=== PATIENT | female | born 1985 | race Caucasian/White ===

== ENCOUNTER 2018-04-05 11:51 | Emergency (ER) | payer MEDICAID ==
[~2018-04-05] VITALS: Ht 160 cm; Wt 79.4 kg
[2018-04-05 11:51] VITALS: BP_SYST 134
[2018-04-05 12:45] LABS: CALCIUM 9.4 mg/dL (8.4-11.0); CREATININE 0.48 mg/dL (0.55-1.30); POTASSIUM 3.4 mmol/L (3.5-5.1)
[2018-04-05 13:11] LABS: ALBUMIN 3.6 g/dL (3.4-4.8); TOTAL BILIRUBIN 0.2 mg/dL (0.0-1.0)
[2018-04-05 13:24] LABS: BASOPHILS % (AUTO) 0.6 % (0.0-2.0); EOSINOPHILS % (AUTO) 0.5 % (0.0-4.0); HEMATOCRIT 38.2 % (36-48); HEMOGLOBIN 11.9 g/dL (12.0-16.0); LYMPHOCYTES # (AUTO) 1.8 K/uL (1.0-5.5); LYMPHOCYTES % (AUTO) 22.9 % (20.5-51.5); MEAN CORPUSCULAR HEMOGLOBIN 25 pg (27-31); MEAN CORPUSCULAR HGB CONC 31 % (32-36); MEAN CORPUSCULAR VOLUME 81 fL (79.0-98.0); MONOCYTES # (AUTO) 0.4 K/uL (0.0-1.0); MONOCYTES % (AUTO) 4.7 % (1.7-9.3); NEUTROPHILS # (AUTO) 5.5 K/uL (1.8-7.7); NEUTROPHILS % (AUTO) 71.3 % (40.0-70.0); PLATELET COUNT (AUTO) 245 K/uL (130-430); RED BLOOD CELL COUNT(AUTO) 4.73 MIL/uL (4.2-6.2); RED CELL DISTRIBUTION WIDTH 15.9 % (9.0-15.0); WHITE BLOOD COUNT (AUTO) 7.7 K/uL (4.8-10.8)
[2018-04-05 13:39] LABS: BILIRUBIN,URINE NEGATIVE (NEGATIVE); BLOOD, URINE NEGATIVE (NEGATIVE); CLARITY/URINE CLEAR (CLEAR); COLOR,URINE YELLOW (YELLOW); GLUCOSE,URINE NEGATIVE (NEGATIVE); KETONES,URINE NEGATIVE (NEGATIVE); LEUKOCYTE ESTERASE ,URINE TRACE (NEGATIVE); NITRITE, URINE NEGATIVE (NEGATIVE); PROTEIN URINE NEGATIVE (NEGATIVE); UROBILINOGEN,URINE 0.2 (0.2-1.0)
[2018-04-05 13:50] LABS: BACTERIA,URINE FEW /HPF (None Seen); MUCUS,URINE None Seen /LPF (None Seen); RBC,URINE 0-3 /HPF (0-3); WBC,URINE 0-3 /HPF (0-3)
[2018-04-05] MEDS ORDERED: cefTRIAXone 1 GM VIAL IM ONE (14:30)
[2018-04-05] MEDS ORDERED: ACETAMINOPHEN 500 MG TABLET PO ONE (14:30)
[2018-04-05] MEDS ORDERED: LIDOCAINE 1%, 20 ML MDV 20 ML ONE (14:44)
[2018-04-05 14:51] VITALS: BP_SYST 134
== END 2018-04-05 14:51 | disposition home or self-care (01) ==
LOC: SED 11:51
DX: Z30.432 Encounter for removal of intrauterine contraceptive device (principal); Z3A.01 Less than 8 weeks gestation of pregnancy
CPT/HCPCS: 36415; 76801; 76817; 80053; 81000; 81025; 84702; 85025; 86900; 86901; 87086; 87186; 96372; 99284; J0696; J2001

== ENCOUNTER 2018-11-08 10:30 | Emergency (ER) | payer SELFPAY ==
[~2018-11-08] VITALS: Ht 162.6 cm; Wt 90.7 kg
[2018-11-08 10:39] VITALS: BP_SYST 116
--- NOTE | 2018-11-08 10:43 | NUR ---
Patient to ER bed 8 to gown for evaluation. Side rails up. Report given to Tyler STORM.
--- NOTE | 2018-11-08 10:44 | NUR ---
Patient is awake, alert, and orienetd x4. Patient is complaining of shortness of breath since last night. Patient reports chest tightness 5/10 when taking a deep breath.
--- NOTE | 2018-11-08 10:50 | NUR ---
ER Dr. Campos at bedside examining patient.
[2018-11-08 11:23] VITALS: BP_SYST 123
--- NOTE | 2018-11-08 11:23 | NUR ---
Patient given written and verbal discharge instructions and verbalizes understanding. ER MD Campos discussed with patient the results and treatment provided. Patient in stable condition. ID arm band removed. Rx of Azithromycin, Albuterol given. Patient educated on pain management and to follow up with PMD. Pain Scale 0. Opportunity for questions provided and answered. Medication side effect fact sheet provided.
== END 2018-11-08 11:23 | disposition home or self-care (01) ==
LOC: SED 10:30
DX: J20.9 Acute bronchitis, unspecified (principal); H66.92 Otitis media, unspecified, left ear
CPT/HCPCS: 71045; 99283

== ENCOUNTER 2018-11-26 20:34 | Emergency (ER) | payer SELFPAY ==
--- NOTE | 2018-11-26 21:13 | NUR ---
Called patient's name in waiting room. No response.
--- NOTE | 2018-11-26 21:20 | NUR ---
Called patient in waiting room and outside, no response.
--- NOTE | 2018-11-26 21:25 | NUR ---
CALLED PATIENT, NO RESPONSE.
--- NOTE | 2018-11-26 21:25 | NUR ---
LEFT WITHOUT BEING SEEN
== END 2018-11-26 21:25 | disposition left against medical advice (07) ==
LOC: SED 20:34
DX: H53.8 Other visual disturbances (principal); R51 Headache; Z53.21 Procedure and treatment not carried out due to patient leaving prior to being seen by health care provider

== ENCOUNTER 2019-02-12 22:21 | Emergency (ER) | payer SELFPAY ==
[~2019-02-12] VITALS: Ht 162.6 cm; Wt 79.4 kg
[2019-02-12 22:22] VITALS: BP_SYST 154
--- NOTE | 2019-02-12 22:28 | NUR ---
Patient to ER bed 04 to gown for evaluation. Side rails up.
--- NOTE | 2019-02-12 22:32 | NUR ---
Pt brought in by . Pt awake, alert, oriented x4. pt states she has flu-like symptoms , sore throat, head congestion for approx 1 week. Pt states that 1 month ago she was diagnosed with tonsilitis by her dentist and was given keflex by her dentist. She states she completed 5 days of a 10 day antibiotic routine. Pt states her symptoms returned recently, and she wanted to come to the ED. Pt denies chest pain, nausea, vomiting, diarrhea, shortness of breath. Pt denies any other medical complaint at this time. Pt vss, sitting in bed comfortablyt, will continue to monitor.
--- NOTE | 2019-02-12 22:36 | NUR ---
ER at bedside examining patient.
[2019-02-12] MEDS ORDERED: KETOROLAC TROMETHAMINE 30 MG VIAL IM ONE (22:45)
[2019-02-12] MEDS ORDERED: DEXAMETHASONE SOD PHOSPHATE 10 MG/ML VIAL IVP ONE (22:45)
[2019-02-12 23:19] LABS: STREPTOCOCCUS A SCREEN (RAPID) NEGATIVE (NEGATIVE)
[2019-02-12 23:29] LABS: INFLUENZA A&B ANTIGEN SCREEN NEGATIVE FOR A & B (NEGATIVE)
[2019-02-12 23:45] VITALS: BP_SYST 154
--- NOTE | 2019-02-12 23:45 | NUR ---
Patient given written and verbal discharge instructions and verbalizes understanding. ER MD discussed with patient the results and treatment provided. Patient in stable condition. ID arm band removed. Rx of N[place]ros[place]yetta, [place] 5/325, sudafed given. Patient educated on pain management and to follow up with PMD. Pain Scale 1/10. Opportunity for questions provided and answered. Medication side effect fact sheet provided.
== END 2019-02-12 23:45 | disposition home or self-care (01) ==
LOC: SED 22:21
DX: J02.9 Acute pharyngitis, unspecified (principal)
CPT/HCPCS: 36415; 86403; 87081; 96372; 99283; J1100; J1885; 86710

== ENCOUNTER 2019-12-14 19:07 | Emergency (ER) | payer MEDICAID ==
[~2019-12-14] VITALS: Ht 157.5 cm; Wt 81.6 kg
[2019-12-14 19:36] VITALS: BP_SYST 129
[2019-12-14 21:42] LABS: BASOPHILS % (AUTO) 0.5 % (0.0-2.0); EOSINOPHILS # (AUTO) 0.4 K/uL (0.0-0.4); EOSINOPHILS % (AUTO) 6.1 % (0.0-4.0); HEMATOCRIT 34.9 % (36-48); LYMPHOCYTES # (AUTO) 2.2 K/uL (1.0-5.5); LYMPHOCYTES % (AUTO) 31.3 % (20.5-51.5); MEAN CORPUSCULAR HEMOGLOBIN 24 pg (27-31); MEAN CORPUSCULAR HGB CONC 32 % (32-36); MEAN CORPUSCULAR VOLUME 77 fL (79.0-98.0); MONOCYTES # (AUTO) 0.6 K/uL (0.0-1.0); NEUTROPHILS # (AUTO) 3.7 K/uL (1.8-7.7); NEUTROPHILS % (AUTO) 54.1 % (40.0-70.0); PLATELET COUNT (AUTO) 232 K/uL (130-430); RED BLOOD CELL COUNT(AUTO) 4.56 MIL/uL (4.2-6.2); RED CELL DISTRIBUTION WIDTH 21.2 % (9.0-15.0); WHITE BLOOD COUNT (AUTO) 6.9 K/uL (4.8-10.8)
[2019-12-14 21:49] LABS: CALCIUM 8.9 mg/dL (8.4-11.0); CREATININE 0.52 mg/dL (0.55-1.30); POTASSIUM 3.8 mmol/L (3.5-5.1)
[2019-12-14 21:54] LABS: ALBUMIN 3.6 g/dL (3.4-4.8); TOTAL BILIRUBIN 0.1 mg/dL (0.0-1.0)
[2019-12-14] MEDS ORDERED: KETOROLAC TROMETHAMINE 30 MG VIAL IM ONE (23:15)
[2019-12-14 23:56] VITALS: BP_SYST 129
== END 2019-12-14 23:56 | disposition home or self-care (01) ==
LOC: SED 19:07
DX: G44.209 Tension-type headache, unspecified, not intractable (principal)
CPT/HCPCS: 36415; 70450; 72125; 80053; 84703; 85025; 96372; 99285; J1885

== ENCOUNTER 2020-02-06 12:42 | Emergency (ER) | payer MEDICAID ==
[~2020-02-06] VITALS: Ht 157.5 cm; Wt 85.3 kg
[2020-02-06 12:42] VITALS: BP_SYST 129
[2020-02-06 16:06] LABS: BILIRUBIN,URINE NEGATIVE (NEGATIVE); BLOOD, URINE NEGATIVE (NEGATIVE); CLARITY/URINE CLEAR (CLEAR); COLOR,URINE YELLOW (YELLOW); GLUCOSE,URINE NEGATIVE (NEGATIVE); KETONES,URINE NEGATIVE (NEGATIVE); LEUKOCYTE ESTERASE ,URINE NEGATIVE (NEGATIVE); NITRITE, URINE NEGATIVE (NEGATIVE); PROTEIN URINE NEGATIVE (NEGATIVE); UROBILINOGEN,URINE 0.2 (0.2-1.0)
[2020-02-06 16:33] VITALS: BP_SYST 109
== END 2020-02-06 16:33 | disposition home or self-care (01) ==
LOC: SED 12:42
DX: R10.2 Pelvic and perineal pain (principal)
CPT/HCPCS: 76830-TC; 76857; 81003; 81025; 99284

== ENCOUNTER 2020-12-08 12:24 | Emergency (ER) | payer MEDICAID ==
[~2020-12-08] VITALS: Ht 162.6 cm; Wt 77.1 kg
[2020-12-08 12:36] VITALS: BP_SYST 143
--- NOTE | 2020-12-08 12:36 | NUR ---
Patient to ER bed 6 to gown for evaluation. Side rails up.
--- NOTE | 2020-12-08 12:55 | NUR ---
Pt. bought self in with c/o pain when moves arm over left side of chest and down arm, started at 6am today. Pt. states feels like she pulled a muscle, "pain only when moves otherwise feels more numbness." Denies need for pain med. at this time. Denies any activity or injury that would of caused this pain. No N/V/D or epigastric pain.
--- NOTE | 2020-12-08 13:29 | NUR ---
ROSI Clemente at bedside examining patient.
[2020-12-08] MEDS ORDERED: ASPIRIN 81 MG TAB.CHEW PO ONE ×2 (13:45→14:15)
--- NOTE | 2020-12-08 15:12 | NUR ---
lab here for blood draw
--- NOTE | 2020-12-08 15:29 | NUR ---
ER at bedside examining patient.
[2020-12-08 15:32] LABS: BASOPHILS % (AUTO) 0.5 % (0.0-2.0); EOSINOPHILS % (AUTO) 0.6 % (0.0-4.0); HEMATOCRIT 36.4 % (36-48); HEMOGLOBIN 12.1 g/dL (12.0-16.0); LYMPHOCYTES # (AUTO) 1.3 K/uL (1.0-5.5); LYMPHOCYTES % (AUTO) 22.5 % (20.5-51.5); MEAN CORPUSCULAR HEMOGLOBIN 29 pg (27-31); MEAN CORPUSCULAR HGB CONC 33 % (32-36); MEAN CORPUSCULAR VOLUME 87 fL (79.0-98.0); MONOCYTES # (AUTO) 0.3 K/uL (0.0-1.0); MONOCYTES % (AUTO) 4.9 % (1.7-9.3); NEUTROPHILS % (AUTO) 71.5 % (40.0-70.0); PLATELET COUNT (AUTO) 233 K/uL (130-430); RED BLOOD CELL COUNT(AUTO) 4.21 MIL/uL (4.2-6.2); RED CELL DISTRIBUTION WIDTH 15.3 % (9.0-15.0); WHITE BLOOD COUNT (AUTO) 5.6 K/uL (4.8-10.8)
[2020-12-08 15:50] LABS: CREATININE 0.52 mg/dL (0.55-1.30); POTASSIUM 3.7 mmol/L (3.5-5.1)
[2020-12-08 15:56] LABS: ALBUMIN 3.8 g/dL (3.4-4.8); TOTAL BILIRUBIN 0.3 mg/dL (0.0-1.0)
[2020-12-08 17:09] VITALS: BP_SYST 107
--- NOTE | 2020-12-08 17:10 | NUR ---
Patient given written and verbal discharge instructions and verbalizes understanding. ER MD discussed with patient the results and treatment provided. Patient in stable condition. ID arm band removed. No prescriptions given. Patient educated on pain management and to follow up with PMD. Pain Scale 0. Opportunity for questions provided and answered. Medication side effect fact sheet provided.
== END 2020-12-08 17:09 | disposition home or self-care (01) ==
LOC: SED 12:24
DX: R07.89 Other chest pain (principal)
CPT/HCPCS: 36415; 71045; 80053; 81025; 83880; 84484; 85025; 85379; 93005; 99285

== ENCOUNTER 2021-02-27 15:27 | Emergency (ER) | payer MEDICAID ==
[~2021-02-27] VITALS: Ht 157.5 cm; Wt 84.4 kg
[2021-02-27 15:40] VITALS: BP_SYST 136
--- NOTE | 2021-02-27 15:40 | NUR ---
Pt to bed 1 for evaluation. Report given to DOTTY Reyes who will assume care.
--- NOTE | 2021-02-27 15:58 | NUR ---
Pt came into ER with complaint of Left sided sharp flank pain 11/15 with urinary discomfot X3days. Pt report sit is a stabbing pain. Pt denies vaginal discharge or blood in urine. Pt AAOX4 speaking full sentences VSS. Resting in gurney no distress noted. Breathing is even and unlabored. Pt reports N/V.
--- NOTE | 2021-02-27 16:00 | NUR ---
Urine collected and sent to lab.
[2021-02-27 16:12] LABS: BILIRUBIN,URINE NEGATIVE (NEGATIVE); BLOOD, URINE NEGATIVE (NEGATIVE); CLARITY/URINE CLEAR (CLEAR); COLOR,URINE YELLOW (YELLOW); GLUCOSE,URINE NEGATIVE (NEGATIVE); KETONES,URINE NEGATIVE (NEGATIVE); LEUKOCYTE ESTERASE ,URINE NEGATIVE (NEGATIVE); NITRITE, URINE NEGATIVE (NEGATIVE); PH,URINE 8.5 (5.0-8.0); PROTEIN URINE NEGATIVE (NEGATIVE); UROBILINOGEN,URINE 0.2 (0.2-1.0)
--- NOTE | 2021-02-27 16:13 | NUR ---
Blood collected and sent to lab.
--- NOTE | 2021-02-27 16:13 | NUR ---
# 20 gauge angiocath placed to LAC. Use of asceptic technique. Opsite placed over site. Blood return noted. Blood for lab drawn from site. Flushed with 10 cc of normal saline. No evidence of infiltration noted. Patient tolerated well.
--- NOTE | 2021-02-27 16:21 | NUR ---
ER at bedside examining patient.
[2021-02-27 16:58] LABS: BASOPHILS # (AUTO) 0.1 K/uL (0.0-0.2); BASOPHILS % (AUTO) 0.7 % (0.0-2.0); EOSINOPHILS # (AUTO) 0.4 K/uL (0.0-0.4); EOSINOPHILS % (AUTO) 4.9 % (0.0-4.0); HEMATOCRIT 34.3 % (36-48); HEMOGLOBIN 11.4 g/dL (12.0-16.0); LYMPHOCYTES % (AUTO) 25.4 % (20.5-51.5); MEAN CORPUSCULAR HEMOGLOBIN 28 pg (27-31); MEAN CORPUSCULAR HGB CONC 33 % (32-36); MEAN CORPUSCULAR VOLUME 84 fL (79.0-98.0); MONOCYTES # (AUTO) 0.5 K/uL (0.0-1.0); MONOCYTES % (AUTO) 6.9 % (1.7-9.3); NEUTROPHILS # (AUTO) 4.8 K/uL (1.8-7.7); NEUTROPHILS % (AUTO) 62.1 % (40.0-70.0); PLATELET COUNT (AUTO) 246 K/uL (130-430); RED CELL DISTRIBUTION WIDTH 15.3 % (9.0-15.0); WHITE BLOOD COUNT (AUTO) 7.8 K/uL (4.8-10.8)
[2021-02-27 17:11] LABS: CALCIUM 8.6 mg/dL (8.4-11.0); CREATININE 0.52 mg/dL (0.55-1.30); POTASSIUM 3.5 mmol/L (3.5-5.1)
[2021-02-27 17:17] LABS: ALBUMIN 3.6 g/dL (3.4-4.8); TOTAL BILIRUBIN 0.2 mg/dL (0.0-1.0)
--- NOTE | 2021-02-27 17:47 | NUR ---
Patient transported to radiology via gurney, accompanied by chyna.
--- NOTE | 2021-02-27 18:01 | NUR ---
Pt back from CT. Reattached to monitor.
--- NOTE | 2021-02-27 18:07 | NUR ---
Pt sitting up in [facility] VSS no distress noted at this time.
[2021-02-27] MEDS ORDERED: IBUP-1969 PO (18:50)
[2021-02-27 19:10] VITALS: BP_SYST 130
--- NOTE | 2021-02-27 19:10 | NUR ---
Patient given written and verbal discharge instructions and verbalizes understanding. ER MD discussed with patient the results and treatment provided. Patient in stable condition. ID arm band removed. IV catheter removed intact and dressing applied, no active bleeding. Rx of motrin given. Patient educated on pain management and to follow up with PMD. Pain Scale 0/10. Opportunity for questions provided and answered. Medication side effect fact sheet provided.
== END 2021-02-27 19:10 | disposition home or self-care (01) ==
LOC: SED 15:27
DX: R10.9 Unspecified abdominal pain (principal); N64.4 Mastodynia
CPT/HCPCS: 36415; 76376; 80053; 81003; 81025; 85025; 99284

== ENCOUNTER 2023-01-05 11:57 | Emergency (ER) | payer MEDICAID ==
[~2023-01-05] VITALS: Ht 157.5 cm; Wt 81.6 kg
[2023-01-05 11:57] VITALS: BP_SYST 118; PULSE 91; RESP 17; TEMP 97.8; O2SAT 95
[~2023-01-05 11:57] MED LIST: IBUP-1969 PO
[2023-01-05 12:51] LABS: BASOPHILS # (AUTO) 0.1 K/uL (0.0-0.2); BASOPHILS % (AUTO) 1.2 % (0.0-2.0); EOSINOPHILS # (AUTO) 0.2 K/uL (0.0-0.4); EOSINOPHILS % (AUTO) 2.6 % (0.0-4.0); HEMOGLOBIN 10.8 g/dL (12.0-16.0); LYMPHOCYTES # (AUTO) 1.7 K/uL (1.0-5.5); LYMPHOCYTES % (AUTO) 29.4 % (20.5-51.5); MEAN CORPUSCULAR HEMOGLOBIN 25 pg (27-31); MEAN CORPUSCULAR HGB CONC 32 % (32-36); MEAN CORPUSCULAR VOLUME 79 fL (79.0-98.0); MONOCYTES # (AUTO) 0.4 K/uL (0.0-1.0); MONOCYTES % (AUTO) 6.8 % (1.7-9.3); NEUTROPHILS # (AUTO) 3.5 K/uL (1.8-7.7); PLATELET COUNT (AUTO) 247 K/uL (130-430); RED BLOOD CELL COUNT(AUTO) 4.32 MIL/uL (4.2-6.2); WHITE BLOOD COUNT (AUTO) 5.9 K/uL (4.8-10.8)
[2023-01-05 13:11] LABS: CALCIUM 8.5 mg/dL (8.4-11.0); CREATININE 0.48 mg/dL (0.55-1.30)
[2023-01-05 13:16] LABS: ALBUMIN 3.6 g/dL (3.4-4.8); TOTAL BILIRUBIN 0.2 mg/dL (0.0-1.0); TOTAL PROTEIN, SERUM 7.4 g/dL (6.4-8.3)
[2023-01-05 14:29] LABS: GLUCOSE,URINE NEGATIVE (NEGATIVE); KETONES,URINE NEGATIVE (NEGATIVE); PH,URINE 6.5 (5.0-8.0); PROTEIN URINE NEGATIVE (NEGATIVE)
[2023-01-05 14:30] LABS: BILIRUBIN,URINE NEGATIVE (NEGATIVE); BLOOD, URINE 2+ (NEGATIVE); CLARITY/URINE HAZY (CLEAR); LEUKOCYTE ESTERASE ,URINE NEGATIVE (NEGATIVE); NITRITE, URINE NEGATIVE (NEGATIVE); UROBILINOGEN,URINE 0.2 (0.2-1.0)
[2023-01-05 14:31] LABS: COLOR,URINE ORANGE (YELLOW)
[2023-01-05 14:34] LABS: BACTERIA,URINE MODERATE /HPF (None Seen); MUCUS,URINE 1+ /LPF (None Seen); RBC,URINE 50-80 /HPF (0-3)
== END 2023-01-05 15:03 | disposition home or self-care (01) ==
LOC: SED 11:57
DX: N93.8 Other specified abnormal uterine and vaginal bleeding (principal); D25.9 Leiomyoma of uterus, unspecified
CPT/HCPCS: 36415; 76856-TC; 80053; 81000; 81025; 85025; 86886; 86900; 86901; 87086; 99284